=== PATIENT | male | born 1990 | race Caucasian/White ===

== ENCOUNTER 2019-01-03 18:19 | Emergency (ER) | payer MEDICAID ==
[~2019-01-03] VITALS: Ht 177.8 cm; Wt 88.5 kg
[2019-01-03 18:20] VITALS: BP_SYST 128
[2019-01-03 18:43] VITALS: BP_SYST 128
== END 2019-01-03 18:43 ==
LOC: SED 18:19
DX: F43.10 Post-traumatic stress disorder, unspecified (principal); F20.9 Schizophrenia, unspecified
CPT/HCPCS: 99283

== ENCOUNTER 2019-02-23 09:52 | Emergency (ER) | payer MEDICAID ==
[~2019-02-23] VITALS: Ht 185.4 cm; Wt 88.5 kg
[2019-02-23 09:57] VITALS: BP_SYST 111
[2019-02-23 10:15] VITALS: BP_SYST 111
== END 2019-02-23 10:16 ==
LOC: SED 09:52
DX: Z02.89 Encounter for other administrative examinations (principal); Z04.6 Encounter for general psychiatric examination, requested by authority; F20.9 Schizophrenia, unspecified; Z13.1 Encounter for screening for diabetes mellitus; Z83.3 Family history of diabetes mellitus
CPT/HCPCS: 82962; 99283